=== PATIENT | male | born 1995 | race African-American/Black ===

== ENCOUNTER 2021-10-29 20:20 | Emergency (ER) | payer OTHER ==
[~2021-10-29] VITALS: Ht 180.3 cm; Wt 106.3 kg
[2021-10-29] MEDS ORDERED: GI COCKTAIL 50ML BTL(HYOSCYAMINE/MAALOX/LIDOCAINE VISCOUS)(1:3:1) PO ONE (21:40)
[2021-10-29 22:53] LABS: ALBUMIN 3.8 GM/DL (3.2-5.2); ALT/SGPT 54 U/L (12-78); BILIRUBIN,DIRECT 0.1 MG/DL (0.0-0.2); BILIRUBIN,TOTAL 0.9 MG/DL (0.2-1.0); BLOOD UREA NITROGEN 10 MG/DL (7-18); CALCIUM LEVEL 9.7 MG/DL (8.5-10.1); CARBON DIOXIDE LEVEL 27 MEQ/L (21-32); CHLORIDE LEVEL 105 MEQ/L (98-107); CREATININE FOR GFR 1.25 MG/DL (0.70-1.30); GLOMERULAR FILTRATION RATE > 60.0 (>60); GLUCOSE, FASTING 83 MG/DL (70-100); LIPASE 169 U/L (73-393); POTASSIUM SERUM 5.1 MEQ/L (3.5-5.1); SODIUM LEVEL 140 MEQ/L (136-145); TOTAL PROTEIN 7.5 GM/DL (6.4-8.2)
[2021-10-29 23:04] LABS: BASO % 0.3 % (0.0-1.0); EOS # 0.1 10^3/uL (0.0-0.5); EOS % 1.6 % (0.0-3.0); HEMATOCRIT 44.8 % (42.0-52.0); HEMOGLOBIN 14.5 g/dl (13.5-17.5); LYMPH # 1.4 10^3/uL (1.5-5.0); LYMPH % 21.2 % (24.0-44.0); MEAN CORPUSCULAR HGB CONC 32.4 g/dl (32.0-36.5); MEAN CORPUSCULAR VOLUME 89.6 fl (80.0-96.0); MONO # 0.5 10^3/uL (0.0-0.8); MONO % 7.3 % (2.0-8.0); NEUTROPHILS # 4.7 10^3/uL (1.5-8.5); NEUTROPHILS % 69.5 % (36.0-66.0); PLATELET COUNT, AUTOMATED 278 10^3/uL (150-450); WHITE BLOOD COUNT 6.7 10^3/uL (4.0-10.0)
[2021-10-29 23:15] VITALS: BP 155/68
[2021-10-29] MEDS ORDERED: NS 1,000 ML IV ONE (23:20)
[2021-10-29] MEDS ORDERED: ISOVUE-370 76% 100ML VIAL As Ordered ONE (23:21)
[2021-10-29] MEDS ORDERED: ONDANSETRON 4MG/2ML VIAL IV ONE (23:45)
[2021-10-30] MEDS ORDERED: OMEP40CA4 PO (01:39)
== END 2021-10-30 01:58 | disposition home or self-care (01) ==
LOC: M ED 20:20
DX: R07.89 Other chest pain (principal)
CPT/HCPCS: 71046; 71275; 80048; 80076; 83690; 84484; 85025; 85379; 93005; 93041; 94760; 96361; 96374; 99284; J2405; Q9967